=== PATIENT | male | born 1955 | race Hispanic/Latino ===

== ENCOUNTER 2021-08-11 07:44 | Emergency (ER) | payer OTHER ==
[~2021-08-11] VITALS: Ht 180.3 cm; Wt 127.0 kg
[2021-08-11] MEDS ORDERED: TETANUS/DIPHTHERIA TOX ADULT 0.5 ML SYR IM ONE (08:00)
[2021-08-11] MEDS ORDERED: CEFTRIAXONE 1 GM VIAL IM ONE (08:00)
[2021-08-11] MEDS ORDERED: LIDOCAINE HCL 1% LOCAL INJ 20 ML VIAL ONE (08:11)
== END 2021-08-11 09:22 | disposition home or self-care (01) ==
LOC: ER 07:49
DX: S61.452A Open bite of left hand, initial encounter (principal); W55.01XA Bitten by cat, initial encounter; Y92.89 Other specified places as the place of occurrence of the external cause
CPT/HCPCS: 73130; 90714; 99283; J0696; J2001